=== PATIENT | male | born 1965 | race Caucasian/White ===

== ENCOUNTER → 2017-05-09 | Outpatient (CLI) | payer OTHER ==
--- NOTE | 2017-05-09 11:27 | PCVCIMAG ---
APPROVED REPORT Exam: Stress Echocardiogram Indication: CAD , Hypertension, Hyperlipidemia Patient Location: Echo lab Stress Nurse: Cynthia Bassett RN Room #: 2 Status: routine Ht: 5 ft 10 in HR: 60 bpm BP: 110/80 mmHg Rhythm: NSR Medical History Medical History: CAD , HTN, Hyperlipidemia Cardiac Risk Factors: HTN, Hyperlipidemia Pretest Chest Pain Characteristics: No chest pain Exercise History: Indeterminate Procedure The patient underwent an Exercise Stress Test using the Bandar Protocol. Blood pressure, heart rate, and EKG were monitored. An Echocardiogram was performed by senior environmental technician in four stages in quad fashion. At peak stress, four selected images were obtained and placed side by side with resting images for comparison. Stress Test Details Stress Test: Exercise stress testing was performed using a Bandar protocol. HR Resting HR: 60 bpmMax Heart Rate (APMHR): 167 bpm Max HR Achieved: 125 bpmTarget HR (85% APMHR): 141 bpm % of APMHR: 74 Recovery HR: 73 bpm HR response to stress: Blunted HR response to stress BP Resting BP: 110/80 mmHg Max BP: 134/80 mmHg Recovery BP: 110/78 mmHg ECG Resting ECG: Sinus Rhythm Stress ECG: Sinus Rhythm ST Change: Non-ischemic Maximum ST Deviation: 0 mm Arrhythmia: None Recovery ECG: Sinus Rhythm Recovery ST Change: Non-ischemic Recovery ST Deviation: 0 mm Recovery Arrhythmia: None Clinical Reason for Termination: Maximal effort Stress Symptoms: none Exercise duration: 9 min 30 sec Highest Stage Achieved: Stage 4: 4.2 mph at 16% grade. Exercise capacity: 11.6 METs Overall Exercise Capacity for Age: Good Angina Score: None No complications. Stress ECG Conclusion The patient exercised according to the Bandar protocol for 9:30 mins; achieving a work level of 11.6 METS. The resting heart rate of 60 bpm helena to a maximal heart rate of 125 bpm. This value represents 74% of the maximal, age-predicted heart rate. The resting blood pressure of 110/80 mmHg, helena to a maximum of 134/80 mmHg. The exercise test was stopped due to fatigue. Normal submaximal stress test. Forbes Treadmill Score is 9.0 which is Low risk. Pre-Stress Echo The resting Echocardiogram showed normal left ventricular contractility with an estimated Ejection Fraction of about 55-60%. Normal wall motion in all segments on baseline images. Post-Stress Echo The stress Echocardiogram showed normal left ventricular contractility with an estimated Ejection Fraction of about 60-65%. Normal augmentation of wall motion in all segments on post stress images. Clinical No clinical or ECG evidence for ischemia. Conclusion Clinical Response: Non-ischemic Exercise Capacity: Average Stress ECG Response: Non-ischemic Stress Echo Images: Non-ischemic No clinical, EKG or echocardiographic evidence for ischemia. Heart rate response was blunted due to patient taking a beta tian day of testing. No echocardiographic evidence for exercise induced ischemia. Normal stress echocardiogram with submaximal exercise stress. <Conclusion> No clinical, EKG or echocardiographic evidence for ischemia. Heart rate response was blunted due to patient taking a beta tian day of testing. No echocardiographic evidence for exercise induced ischemia. Normal stress echocardiogram with submaximal exercise stress.
== END | disposition home or self-care (01) ==
LOC: PCVCIMAG 09:14
PROVIDERS: ATTEND Internal Medicine
DX: I25.119 Atherosclerotic heart disease of native coronary artery with unspecified angina pectoris (principal); I10 Essential (primary) hypertension; E78.5 Hyperlipidemia, unspecified
CPT/HCPCS: 93325; 93351

== ENCOUNTER → 2019-06-25 | Outpatient (CLI) | payer OTHER ==
--- NOTE | 2019-06-25 12:40 | PCVCIMAG ---
APPROVED REPORT Study performed: 06/25/2019 09:53:20 Exam: Stress Echocardiogram Indication: CAD s/p PCI Patient Location: Echo lab Stress Nurse: Cynthia Bassett RN Status: routine Ht: 5 ft 10 in HR: 62 bpm BP: 122/90 mmHg Rhythm: NSR Procedure The patient underwent an Exercise Stress Test using the Bandar Protocol. Blood pressure, heart rate, and EKG were monitored. An Echocardiogram was performed by lead slot technician in four stages in quad fashion. At peak stress, four selected images were obtained and placed side by side with resting images for comparison. Stress Test Details Stress Test: Exercise stress testing was performed using a Bandar protocol. HR Resting HR: 62 bpmMax Heart Rate (APMHR): 165 bpm Max HR Achieved: 155 bpmTarget HR (85% APMHR): 140 bpm % of APMHR: 93 Recovery HR: 84 bpm HR response to stress: Normal HR response to stress BP Resting BP: 122/90 mmHg Max BP: 162/78 mmHg Recovery BP: 130/76 mmHg BP response to stress: Normal blood pressure response to stress. ECG Resting ECG: Sinus Rhythm, nonspecific ST-T abnormalities Stress ECG: Sinus Rhythm ST Change: Normal Maximum ST Deviation: 0 mm Arrhythmia: occasional PVC Recovery ECG: Sinus Rhythm, nonspecific ST-T abnormalities Recovery ST Change: Normal Recovery ST Deviation: 0 mm Recovery Arrhythmia: None Clinical Reason for Termination: Maximal effort Stress Symptoms: Dyspnea Exercise duration: 9 min 35 sec Highest Stage Achieved: Stage 4: 4.2 mph at 16% grade. Exercise capacity: 11.8 METs Overall Exercise Capacity for Age: Normal Scale: Sedentary Angina Score: None Stress ECG Conclusion Clinical: Non-ischemic ECG: Non-ischemic Forbes Treadmill Score is 9.0 which is Low risk. Pre-Stress Echo The resting Echocardiogram showed normal left ventricular contractility with an estimated Ejection Fraction of about >55%. The resting echocardiogram demonstrated normal wall motion in all wall segments. Post-Stress Echo The stress Echocardiogram showed normal left ventricular contractility with an estimated Ejection Fraction of about 65%. Compared to rest, there were no stress-induced wall motion abnormalities. Clinical No clinical or ECG evidence for ischemia. Conclusion Clinical Response: Non-ischemic Exercise Capacity: Average Stress ECG Response: Non-ischemic Stress Echo Images: Non-ischemic The left ventricle is normal in size and wall thickness in both the rest and stress images. Normal color doppler. No regurgitation or stenosis present on pulmonic, tricuspid and aortic valves. Mild mitral regurgitation without stenosis. Normal stress echocardiogram with maximal exercise stress. Other Information Study Quality: Adequate <Conclusion> The left ventricle is normal in size and wall thickness in both the rest and stress images. Normal color doppler. No regurgitation or stenosis present on pulmonic, tricuspid and aortic valves. Mild mitral regurgitation without stenosis. Normal stress echocardiogram with maximal exercise stress.
== END | disposition home or self-care (01) ==
LOC: PCVCIMAG 10:10
PROVIDERS: ATTEND Internal Medicine
DX: I34.0 Nonrheumatic mitral (valve) insufficiency (principal); I25.10 Atherosclerotic heart disease of native coronary artery without angina pectoris; E78.5 Hyperlipidemia, unspecified
CPT/HCPCS: 93325; 93351